=== PATIENT | female | born 1970 | race Caucasian/White ===

== ENCOUNTER → 2016-08-14 | Outpatient (CLI) | payer BC ==
--- NOTE | 2016-08-15 09:46 | MM ---
Reason for exam: screening (asymptomatic). Last mammogram was performed 2 years and 10 months ago. History: Family history of breast cancer in grandmother at age 80. Physical Findings: A clinical breast exam by your physician is recommended on an annual basis and results should be correlated with mammographic findings. MG Screening Mammo w CAD Bilateral CC and MLO view(s) were taken. Prior study comparison: October 09, 2013, bilateral MG screening mammo w CAD. The breast tissue is extremely dense which could obscure a lesion on mammography. Finding: There are typically benign calcifications in both breasts. There is a chronic nodularity in the left breast, stable. No significant changes in finding since October 09, 2013. ASSESSMENT: Benign, BI-RAD 2 RECOMMENDATION: Routine screening mammogram of both breasts in 1 year.
== END | disposition home or self-care (01) ==
LOC: RADMAMWWP 16:51
PROVIDERS: ATTEND Family Medicine
DX: Z12.31 Encounter for screening mammogram for malignant neoplasm of breast (principal)

== ENCOUNTER → 2017-12-06 | Outpatient (CLI) | payer BC ==
--- NOTE | 2017-12-07 11:18 | MM ---
Reason for exam: screening (asymptomatic). Last mammogram was performed 1 year and 4 months ago. History: Family history of breast cancer in grandmother at age 80. Physical Findings: A clinical breast exam by your physician is recommended on an annual basis and results should be correlated with mammographic findings. MG 3D Screening Mammo W/Cad Bilateral CC and MLO view(s) were taken. Prior study comparison: August 14, 2016, bilateral MG screening mammo w CAD. October 09, 2013, bilateral MG screening mammo w CAD. The breast tissue is heterogeneously dense. This may lower the sensitivity of mammography. Benign appearing round bilateral calcifications. There is chronic nodularity in the left breast. There is no discrete abnormality. ASSESSMENT: Benign, BI-RAD 2 RECOMMENDATION: Routine screening mammogram of both breasts in 1 year.
== END | disposition home or self-care (01) ==
LOC: RADMAMWWP 12:25
PROVIDERS: ATTEND Family Medicine
DX: Z12.31 Encounter for screening mammogram for malignant neoplasm of breast (principal)
CPT/HCPCS: 77063; 77067

== ENCOUNTER → 2018-02-20 | Outpatient (CLI) | payer BC ==
[2018-02-20 16:24] LABS: Basophils # (A) 0.1 k/uL (0-0.2); Basophils % (A) 1 %; Eosinophils # (A) 0.2 k/uL (0-0.7); Eosinophils % (A) 3 %; HCT 31.9 % (34.0-46.0); HGB 10.6 gm/dL (11.4-16.0); Lymphocytes # (A) 1.7 k/uL (1.0-4.8); Lymphocytes % (A) 20 %; MCH 31.4 pg (25.0-35.0); MCHC 33.1 g/dL (31.0-37.0); MCV 94.7 fL (80.0-100.0); Monocytes # (A) 0.4 k/uL (0-1.0); Monocytes % (A) 5 %; Neutrophils # (A) 6.1 k/uL (1.3-7.7); Neutrophils % (A) 70 %; Platelet Count 433 k/uL (150-450); RBC 3.37 m/uL (3.80-5.40); RDW 13.9 % (11.5-15.5); WBC 8.7 k/uL (3.8-10.6)
== END | disposition home or self-care (01) ==
LOC: LABPAT 15:49
PROVIDERS: ATTEND Obstetrics & Gynecology
DX: Z01.812 Encounter for preprocedural laboratory examination (principal); Z01.818 Encounter for other preprocedural examination; D64.9 Anemia, unspecified; N92.0 Excessive and frequent menstruation with regular cycle; I10 Essential (primary) hypertension
CPT/HCPCS: 36415; 85025; 93005

== ENCOUNTER 2018-02-25 08:30 | Day surgery (SDC) | payer BC ==
[2018-02-21 11:50] VITALS: BMI 25.2
[~2018-02-25 08:30] MED LIST: LACTATED RINGERS 1,000 ML IV SCH; LIDOCAINE 1% 20 ML VIAL (10MG/ML) FOR IV START INTRADERMA PRN; MIDAZOLAM 2 MG/2 ML VIAL IV PRN; Pre Op ABX Message 1 EACH MISC MISCELLANE ONE; fentaNYL (PF) 50 MCG/ML 2 ML AMP IV PRN
[2018-02-25 09:09] VITALS: RESP 16
[2018-02-25] MEDS ORDERED: PROPOFOL 10 MG/ML 20 ML VIAL IV ONE (09:45)
[2018-02-25] MEDS ORDERED: MIDAZOLAM 2 MG/2 ML VIAL ONE (09:45)
[2018-02-25] MEDS ORDERED: GLYCOPYRROLATE 0.2 MG/ML 2 ML VIAL ONE (09:45)
[2018-02-25] MEDS ORDERED: LIDOCAINE 1% INJ 10MG/ML (20 ML MDV) ONE (09:45)
[2018-02-25] MEDS ORDERED: KETOROLAC 30 MG/ML 1 ML VIAL ONE (09:45)
[2018-02-25] MEDS ORDERED: fentaNYL (PF) 50 MCG/ML 2 ML AMP ONE (09:45)
--- NOTE | 2018-02-25 10:08 | P.OP ---
Date of Procedure: 02/25/18 Preoperative Diagnosis: Hypermenorrhea, anemia Postoperative Diagnosis: Same, normal-appearing endometrial cavity Procedure(s) Performed: Hysteroscopy, NovaSure endometrial ablation Anesthesia: AMIRAH Surgeon: Kat Hawkins Estimated Blood Loss (ml): 20 IV fluids (ml): 600 Urine output (ml): 50 Pathology: none sent Condition: stable Disposition: PACU Description of Procedure: Patient is brought to the operating suite where a general anesthetic is administered. She's placed in the dorsal lithotomy position. The cervix, vagina, perineal bodies are all prepped and draped in usual sterile fashion. Bladder is drained for approximately 50 mL of clear yellow urine. The appropriate timeout is performed to assure proper patient and procedural identification, urine hCG is negative. Examination under anesthesia reveals a grade 2-3 uterine prolapse, grade 2-3 cystocele. Small mobile cavity, negative adnexa bilaterally. Weighted speculum was placed into the vagina and the anterior lip of the cervix is grasped with a double-tooth tenaculum. Cervix sounds to a depth of 10 cm in the anteverted position. The cervix is gently and systematically dilated using Hanks dilators. The hysteroscope was introduced and the cavity is distended with sterile saline. Inspection of the cavity reveals a fair amount of proliferative-type appearing tissue, no obvious polyps fibroids or tumors. Hysteroscope was removed. NovaSure wand is placed and seated properly. Uterine length of 6.5 cm, width of 4.6 cm is calibrated. The machine is properly enabled. For 48 seconds and a power of 164 W the procedure is carried out. When it is completed, the wand is reduced and removed. Hysteroscope was once again introduced and the cavity is noted to be uniformly blanched. All sponge needle and enhancement counts are correct at the end of the procedure. Patient is given Toradol prior to leaving the operative suite. She is brought back to the recovery room in excellent condition with stable vital signs including blood pressure 119/74, pulse 75, 99% O2 saturation. She will follow-up with me in the office in 2 weeks.
[2018-02-25] MEDS ORDERED: LACTATED RINGERS 1,000 ML IV ONE ×3 (10:19→10:34)
[2018-02-25 10:23] VITALS: TEMP 99.1
[2018-02-25] MEDS ORDERED: HYDROmorphone 1 MG/ML 1 ML SYRINGE IVP ONE (10:47)
[2018-02-25 11:55] VITALS: BP 132/87; PULSE 77
== END 2018-02-25 12:02 | disposition home or self-care (01) ==
LOC: OR 08:30
PROVIDERS: ATTEND Obstetrics & Gynecology
DX: N92.0 Excessive and frequent menstruation with regular cycle (principal); J45.909 Unspecified asthma, uncomplicated; I10 Essential (primary) hypertension; Z79.899 Other long term (current) drug therapy; Z79.51 Long term (current) use of inhaled steroids; Z88.6 Allergy status to analgesic agent; Z88.0 Allergy status to penicillin; Z88.2 Allergy status to sulfonamides
CPT/HCPCS: 81025; 58563; J2250; J2001; J3010; J1885; J1170; J2704

== ENCOUNTER → 2018-06-06 | Outpatient (CLI) | payer BC ==
--- NOTE | 2018-06-06 08:28 | US ---
EXAMINATION TYPE: US thyroid st tissue head/neck DATE OF EXAM: 06/06/2018 COMPARISON: NONE CLINICAL HISTORY: E04.1 SINGLE THYROID NODULE. Lump left neck GLAND SIZE: Right Lobe: 4.6 x 1.6 x 1.8 cm Overall Parenchyma: homogenous Left Lobe: 3.7 x 1.4 x 1.6 cm Overall Parenchyma: homogeneous Isthmus Thickness: 0.3 cm NODULES RIGHT: # of nodules measured on right: 0 LEFT: # of nodules measured on left: 0 ISTHMUS: # of nodules measured in the isthmus: 0 Bilateral neck scanned, normal appearing lymph nodes noted IMPRESSION: Unremarkable thyroid ultrasound. No discrete thyroid nodule.
== END | disposition home or self-care (01) ==
LOC: RADUSWWP 06:47
PROVIDERS: ATTEND Physician Assistant
DX: E04.1 Nontoxic single thyroid nodule (principal)
CPT/HCPCS: 76536

== ENCOUNTER → 2019-05-02 | Outpatient (CLI) | payer BC ==
[2019-05-02 09:40] LABS: Basophils % (A) 0 %; Eosinophils # (A) 0.3 k/uL (0-0.7); Eosinophils % (A) 4 %; HCT 35.6 % (34.0-46.0); HGB 11.7 gm/dL (11.4-16.0); Lymphocytes # (A) 1.5 k/uL (1.0-4.8); Lymphocytes % (A) 20 %; MCH 31.3 pg (25.0-35.0); MCHC 32.9 g/dL (31.0-37.0); Monocytes # (A) 0.4 k/uL (0-1.0); Monocytes % (A) 6 %; Neutrophils # (A) 4.8 k/uL (1.3-7.7); Neutrophils % (A) 68 %; Platelet Count 377 k/uL (150-450); RBC 3.75 m/uL (3.80-5.40); RDW 13.5 % (11.5-15.5); WBC 7.1 k/uL (3.8-10.6)
[2019-05-02 09:50] LABS: ALT 19 U/L (4-34); AST 23 U/L (14-36); African American GFR (CKD) >90 (>60 ml/min/1.73 sqM); Alkaline Phosphatase 55 U/L (38-126); Anion Gap 6 mmol/L; Blood Urea Nitrogen 18 mg/dL (7-17); Calcium 10.4 mg/dL (8.4-10.2); Carbon Dioxide 25 mmol/L (22-30); Chloride 107 mmol/L (98-107); Cholesterol 177 mg/dL (<200); Glucose 93 mg/dL (74-99); HDL Cholesterol 34 mg/dL (40-60); LDL Cholesterol,Calculated 123 mg/dL (0-99); Non-African American GFR(CKD) >90 (>60 ml/min/1.73 sqM); Potassium 4.6 mmol/L (3.5-5.1); Sodium 138 mmol/L (137-145); Total Bilirubin 0.7 mg/dL (0.2-1.3); Total Protein 9.6 g/dL (6.3-8.2); Triglycerides 99 mg/dL (<150)
--- NOTE | 2019-05-05 09:21 | MM ---
Reason for exam: screening (asymptomatic). Last mammogram was performed 1 year and 5 months ago. History: Family history of breast cancer in grandmother at age 80. Physical Findings: A clinical breast exam by your physician is recommended on an annual basis and results should be correlated with mammographic findings. MG Screening Mammo w CAD Bilateral CC and MLO view(s) were taken. Prior study comparison: December 06, 2017, bilateral MG 3d screening mammo w/cad. August 14, 2016, bilateral MG screening mammo w CAD. The breast tissue is extremely dense which could obscure a lesion on mammography. Benign appearing bilateral calcifications. No suspicious abnormality. No significant changes when compared with prior studies. ASSESSMENT: Benign, BI-RAD 2 RECOMMENDATION: Routine screening mammogram of both breasts in 1 year.
== END | disposition home or self-care (01) ==
LOC: RADMAMWWP 08:13
PROVIDERS: ATTEND Family Medicine
DX: Z12.31 Encounter for screening mammogram for malignant neoplasm of breast (principal); Z00.00 Encounter for general adult medical examination without abnormal findings
CPT/HCPCS: 77067; 80053; 80061; 84443; 85025

== ENCOUNTER → 2019-07-03 | Outpatient (CLI) | payer OTHER ==
--- NOTE | 2019-07-03 13:43 | XR ---
EXAMINATION TYPE: XR ribs LT DATE OF EXAM: 07/03/2019 COMPARISON: NONE HISTORY: Pain TECHNIQUE: 2 views FINDINGS: Visualized lung boykin clear. There is an age indeterminate deformity of the anterolateral left 10th rib. Surgical clips in the right upper quadrant of the abdomen. IMPRESSION: 1. Age-indeterminate deformity of the anterolateral left 10 rib. Correlate with point tenderness. Cou ld possibly be chronic.
== END | disposition home or self-care (01) ==
LOC: RADXRMAIN 12:59
PROVIDERS: ATTEND Nurse Practitioner Adult Health
DX: R07.81 Pleurodynia (principal)

== ENCOUNTER → 2019-10-22 | Outpatient (CLI) | payer BC ==
--- NOTE | 2019-10-22 15:33 | CT ---
EXAMINATION TYPE: CT angio chest DATE OF EXAM: 10/22/2019 COMPARISON: NONE HISTORY: Shortness of breath on exertion. Abnormal coagulation profile. CT DLP: 215.8 mGycm. Automated Exposure Control for Dose Reduction was Utilized. CONTRAST: CTA scan of the thorax is performed with IV Contrast, patient injected with 100 mL of Isovue 370, pul monary embolism protocol. MIP Images are created on CT scanner and reviewed. FINDINGS: LUNGS: The lungs are grossly clear, there is no concerning parenchymal mass or nodule identified. T here is no pleural effusion or pneumothorax seen. The tracheobronchial tree is patent. MEDIASTINUM: There is satisfactory enhancement of the pulmonary artery and its branches, there is no CT evidence for pulmonary embolism. There are no greater than 1 cm hilar or mediastinal lymph nodes. No cardiomegaly or pericardial effusion is seen. Visualized thoracic aorta shows no aneurysm or di ssection. OTHER: S shaped scoliotic curvature noted with multilevel spurring. Cholecystectomy clips are presen t. IMPRESSION: No CT evidence for acute pulmonary embolism. No suspicious acute pulmonary process.
== END | disposition home or self-care (01) ==
LOC: RADCTMAIN 14:34
PROVIDERS: ATTEND Family Medicine
DX: R79.1 Abnormal coagulation profile (principal)
CPT/HCPCS: 71275; Q9967

== ENCOUNTER → 2019-11-06 | Outpatient (CLI) | payer BC ==
[2019-11-06 19:17] LABS: EBV-EA (IgG) <0.2 AI; EBV-EBNA(IgG) >8.0 AI; EBV-VCA (IgG) 3.4 AI; EBV-VCA (IgM) <0.2 AI
[2019-11-07 11:52] LABS: Lead, Blood 0.5 ug/dL (<5.0)
[2019-11-07 11:59] LABS: HLA B27 NEGATIVE
[2019-11-09 09:38] LABS: Arsenic Whole Blood <3 mcg/L (< 23)
== END | disposition home or self-care (01) ==
LOC: LABWHC1 07:25
PROVIDERS: ATTEND Family Medicine
DX: M25.50 Pain in unspecified joint (principal); R53.83 Other fatigue
CPT/HCPCS: 36415; 82175; 83655; 86663; 86664; 86665; 86812

== ENCOUNTER 2019-11-26 11:50 | Day surgery (SDC) | payer BC ==
[2019-11-24 11:51] VITALS: BMI 26.4
[~2019-11-26 11:50] MED LIST changes: +ALBUTEROL NEB (CONC) 2.5 MG/0.5 ML INHALATION ONE; +LIDOCAINE 1% (10MG/ML) FOR IV START INTRADERMA PRN; -LIDOCAINE 1% 20 ML VIAL (10MG/ML) FOR IV START INTRADERMA PRN; +LIDOCAINE 2% (PF) 20 MG/ML 5 ML VIAL INHALATION ONE; +LIDOCAINE VISCOUS 300 MG/15 ML CUP MUCOUS MEM ONE; -MIDAZOLAM 2 MG/2 ML VIAL IV PRN; -Pre Op ABX Message 1 EACH MISC MISCELLANE ONE; +SODIUM CHLORIDE 0.9% 1,000 ML IV SCH; -fentaNYL (PF) 50 MCG/ML 2 ML AMP IV PRN
[2019-11-26] MEDS ORDERED: PROPOFOL 10 MG/ML 20 ML VIAL IV ONE (13:10)
[2019-11-26] MEDS ORDERED: LIDOCAINE 1% INJ 10MG/ML (20 ML MDV) ONE (13:10)
[2019-11-26] MEDS ORDERED: MIDAZOLAM 2 MG/2 ML VIAL ONE (13:10)
[2019-11-26] MEDS ORDERED: LIDOCAINE 2% INJ 20 MG/ML INTRATRACH ONE (13:16)
[2019-11-26] MEDS ORDERED: IV FLUID CONTINUATION 1,000 ML IV ONE (13:25)
[2019-11-26] MEDS ORDERED: HYDROcodone/APAP 5-325MG 1 EACH TAB ONE (14:01)
--- NOTE | 2019-11-26 22:14 | PCN ---
PROCEDURE NOTE PROCEDURE: Airway examination. PREOPERATIVE DIAGNOSIS: Possible vocal cord dysfunction/tracheal lesion, subglottic abnormality. POSTOPERATIVE DIAGNOSIS: Possible vocal cord dysfunction/tracheal lesion, subglottic abnormality. OPERATORS: Dr. Jenkins, Dr. Blankenship and Sharonda Peterson. ANESTHESIA PROVIDED: General anesthesia. PROCEDURE DESCRIPTION: The patient's procedure took place in room #1. There was informed consent and universal timeout. After the patient was adequately sedated and being fully monitored, the bronchoscope was inserted through the right nostril. It passed through the right nasopharynx into the oropharynx. The hypopharyngeal structures were evaluated carefully. They were all within normal range. The anterior commissure, true cords, false cords, arytenoids, piriform sinuses, right and left valleculae and epiglottis all appeared normal. After topicalization, the bronchoscope was pushed through the glottic opening into the trachea. The trachea itself appeared normal. There were no secretions throughout the trachea. There was nothing subglottically. There was no subglottic stenosis, lesion or malacia noted. The tracheal gilbert was sharp. The right and left mainstem were topicalized. The right upper lobe and its 3 segments, the right middle lobe and its 2 segments, the right lower lobe and its 5 segments all appeared normal. There was no significant bronchitis or any mucosal lesions or abnormalities. No dominant mass. The mucosa appeared normal in every other way. On the left side, after topicalization of the left mainstem, the left upper lobe and its 2 segments, the lingula and its 2 segments, and the left lower lobe and its 4 segments all appeared normal. Again, there was no erythema, hyperemia, mucosal friability or any mucosal lesions to speak of. On the way out, I again looked at the trachea very carefully. The subglottic area was normal. The hypopharyngeal structures, as mentioned earlier, were completely normal. The patient tolerated the procedure well. There was no sampling done. We did do a video of the evaluation so that we could show Dr. Thorne. MMADONISL / DAHLIAN: [id number] /
[2019-11-28 08:02] VITALS: BP 125/86; PULSE 76; RESP 16
== END 2019-11-26 14:14 | disposition home or self-care (01) ==
LOC: ORWHC2ENDO 11:50
PROVIDERS: ATTEND Internal Medicine Critical Care Medicine
DX: R06.09 Other forms of dyspnea (principal); R06.02 Shortness of breath; R06.2 Wheezing; R05 Cough; I10 Essential (primary) hypertension; Z88.0 Allergy status to penicillin; Z88.2 Allergy status to sulfonamides; Z98.890 Other specified postprocedural states; Z90.49 Acquired absence of other specified parts of digestive tract; Z79.899 Other long term (current) drug therapy; Z91.89 Other specified personal risk factors, not elsewhere classified; Z83.3 Family history of diabetes mellitus; Z82.49 Family history of ischemic heart disease and other diseases of the circulatory system; Z82.3 Family history of stroke; Z83.2 Family history of diseases of the blood and blood-forming organs and certain disorders involving the immune mechanism
CPT/HCPCS: 31622; J2001 ×2; J2250; J2704; 31624

== ENCOUNTER → 2020-01-06 | Outpatient (CLI) | payer BC ==
--- NOTE | 2020-01-06 15:32 | CT ---
EXAMINATION TYPE: CT soft tissue neck w con DATE OF EXAM: 01/06/2020 8:50 AM COMPARISON: CT chest 10/22/2019. HISTORY: Neck mass, other diseases of the neck. Intermittent hoarseness. CT DLP: 328.1 mGycm Automated exposure control for dose reduction was used. CONTRAST: CT scan of the neck is performed following with IV Contrast, patient injected with 100 mL of Isovue 3 00. Axial images are obtained, coronal and sagittal reformatted images are reviewed. Three-dimension al images were generated and reviewed on a separate workstation. FINDINGS: There is bony expansion and destruction of the left thyroid cartilage measuring up to 2.1 x 1.1 x 2.1 cm AP, transverse, and craniocaudal respectively (3:46, 5:28) with mild mass effect on the adjacent exit pharyngeal soft tissues. There is asymmetric appearance of the inferior piriform sinus anteriorl y on the left, with mass effect from the left thyroid cartilage mass (3:48, 5:28). There is asymmetri c more diminutive appearance of the left arytenoid cartilage (3:46). There are asymmetric left-sided submandibular prominent calcified lymph nodes spanning 1.0 x 1.6 cm ( 3:58). IMPRESSION: 1. Aggressive appearing expansion and destruction of the left thyroid cartilage measuring 2.1 x 1.1 x 2.1 cm, with asymmetric appearance of the left inferior piriform sinus with mild mass effect, and a symmetric diminutive appearance of the left arytenoid cartilage which may represent destruction. Find ings may represent laryngeal cancer. 2. Asymmetrically enlarged and calcified left submandibular cervical lymph nodes measuring 1.0 x 1.6 cm, which may represent metastatic disease such as squamous cell carcinoma.
== END | disposition home or self-care (01) ==
LOC: RADCTMAIN 07:52
PROVIDERS: ATTEND Otolaryngology
DX: R59.0 Localized enlarged lymph nodes (principal); R06.1 Stridor; Z88.0 Allergy status to penicillin; Z88.2 Allergy status to sulfonamides; Z88.6 Allergy status to analgesic agent
CPT/HCPCS: 70491; Q9967

== ENCOUNTER → 2020-01-19 | Outpatient (CLI) | payer BC ==
[2020-01-19 08:09] LABS: Basophils # (A) 0.1 k/uL (0-0.2); Basophils % (A) 1 %; Eosinophils # (A) 0.3 k/uL (0-0.7); Eosinophils % (A) 4 %; HCT 31.7 % (34.0-46.0); HGB 10.1 gm/dL (11.4-16.0); Lymphocytes # (A) 1.6 k/uL (1.0-4.8); Lymphocytes % (A) 18 %; MCHC 31.9 g/dL (31.0-37.0); Mean Platelet Volume 6.7; Monocytes # (A) 0.4 k/uL (0-1.0); Monocytes % (A) 4 %; Neutrophils # (A) 6.6 k/uL (1.3-7.7); Neutrophils % (A) 72 %; Platelet Count 449 k/uL (150-450); RBC 3.27 m/uL (3.80-5.40); RDW 13.8 % (11.5-15.5); WBC 9.2 k/uL (3.8-10.6)
[2020-01-19 18:11] LABS: African American GFR (CKD) 123.2 (60.0-200.0); Albumin 3.4 g/dL (3.80-4.90); Albumin/Globulin Ratio 0.6 (1.60-3.17); Calcium 9.2 mg/dL (8.7-10.3); Globulin 5.7 g/dL (1.6-3.3); Non-African American GFR(CKD) 106.3 (60.0-200.0); Potassium 3.8 mmol/L (3.5-5.5); Total Bilirubin 0.2 mg/dL (0.2-1.2); Total Protein 9.1 g/dL (6.2-8.2)
[2020-01-19 18:18] LABS: Beta 2 Microglobulin 2.15 mg/L (0.61-2.37)
[2020-01-20 14:10] LABS: Albumin 3.72 g/dL (3.80-4.90); Gamma Globulin 3.48 g/dL (0.70-1.50)
== END | disposition home or self-care (01) ==
LOC: LABWHC1 07:36
DX: D49.59 Neoplasm of unspecified behavior of other genitourinary organ (principal)
CPT/HCPCS: 36415; 80053; 82232; 83615; 84165; 85025